=== PATIENT | male | born 1990 | race Caucasian/White ===

== ENCOUNTER 2018-04-02 10:09 | Emergency (ER) | payer OTHER ==
--- NOTE | 2018-04-02 11:31 | ED Physician Documentation ---
PD HPI UPPER EXT INJURY - Stated complaint Stated Complaint: LEFT HAND INJ - Chief complaint Chief Complaint: Ext Problem - History obtained from History obtained from: Patient - History of Present Illness Location: Left, Hand Type of injury: Fall (he was working out with weights, lost balance and fell while still holding the weight. pain at little and ring finger MCPs.) Timing - onset: Today Timing - details: Abrupt onset, Still present Worsened by: Moving, Palpating Associated symptoms: Swelling. No: Weakness, Numbness Contributing factors: No: Anticoagulated Similar symptoms before: Has not had sx before Recently seen: Not recently seen Review of Systems Skin: denies: Rash, Abrasion (s), Laceration (s) Neurologic: denies: Focal weakness, Numbness PD PAST MEDICAL HISTORY - Past Medical History Past Medical History: No Musculoskeletal: None - Past Surgical History Past Surgical History: Yes - Present Medications Home Medications: Ambulatory Orders Medication Instructions Recorded Confirmed Tramadol HCl 50 mg PO Q6H PRN #20 tablet 04/02/18 - Allergies Allergies/Adverse Reactions: Allergies Allergy/AdvReac Type Severity Reaction Status Date / Time morphine Allergy Mild Nausea Verified 04/02/18 10:27 - Social History Does the pt smoke?: No Smoking Status: Never smoker Does the pt drink ETOH?: No Does the pt have substance abuse?: No - Immunizations Immunizations are current?: Yes PD ED PE NORMAL - Vitals Vital signs reviewed: Yes - General General: Alert and oriented X 3, Well developed/nourished, Other (appears uncomfortable due to hand pain. ) - Derm Derm: Normal color, Warm and dry, No rash - Extremities Extremities: Other (left hand with tenderness and swelling MCPs ring and little fingers. Tender to touch and move fingers. Limited flexion but does not show any malrotation with the flexion. Good color and cap refill. ) Results - Vitals Vitals: Oxygen O2 Source Room air - Rads (name of study) left hand Radiology: Prelim report reviewed (5th neck fracture. ), EMP read contemporaneously Procedures - Splint (location) hand left Type of splint: Fiberglass, Ulnar gutter Other: Patient tolerated well, No complications, Neurovascular intact PD MEDICAL DECISION MAKING - ED course Complexity details: reviewed results, considered differential, d/w patient - Sepsis Event Vital Signs: Oxygen O2 Source Room air Departure - Departure Disposition: 01 Home, Self Care Clinical Impression: Fior's metacarpal fracture, neck, closed Qualifiers: Encounter type: initial encounter Metacarpal bone: fifth Fracture alignment: displaced Laterality: right Qualified Code(s): S62.336A - Displaced fracture of neck of fifth metacarpal bone, right hand, initial encounter for closed fracture Condition: Stable Record reviewed to determine appropriate education?: Yes Instructions: ED Francoise Boxer Follow-Up: [facility] [Provider Group] Prescriptions: Tramadol HCl 50 mg PO Q6H PRN #20 tablet PRN Reason: Pain Comments: Keep the splint on until follow-up. Call Wednesday the orthopedic office for follow-up appointment in about a week. At that point they will ensure its still in an adequate position for healing and might change the splint. Elevate ice and rest the hand often to reduce swelling. Tylenol or ibuprofen if needed for pains. Add tramadol if needed for pain. This will take about 4-6 weeks to heal up fully, but you will have increasing use of the hand after 2-3 weeks. Discharge Date/Time: 04/02/18 13:47
[2018-04-02] MEDS ORDERED: ACETAMINOPHEN 325 MG TABLET PO STA (11:46)
--- NOTE | 2018-04-02 12:38 | XRAY Report ---
Procedure Date: 04/02/2018 Accession Number: [id number] / [id number] Procedure: XR - Hand 3 View LT CPT Code: FULL RESULT: EXAM: LEFT HAND RADIOGRAPHY EXAM DATE: 04/02/2018 12:23 PM. CLINICAL HISTORY: Weight dropped onto left hand. COMPARISON: None. TECHNIQUE: 3 views. FINDINGS: Bones: Extra-articular fracture of distal fifth metacarpal shaft extending to the neck. There is 2 mm radial displacement and moderate radial volar angulation of the distal component. Joints: No subluxation. Joint spaces are preserved. Soft Tissues: Swelling at the fracture site. IMPRESSION: 1. Mildly displaced, moderately angulated extra-articular fracture of distal fifth metacarpal. RADIA
[2018-04-02] MEDS ORDERED: oxyCOD/ACETAMIN 5 MG/325 MG TABLET PO STA (13:15)
[2018-04-02 13:39] VITALS: BP 119/83
== END 2018-04-02 13:47 | disposition home or self-care (01) ==
LOC: ED 10:09
DX: S62.337A Displaced fracture of neck of fifth metacarpal bone, left hand, initial encounter for closed fracture (principal); W23.0XXA Caught, crushed, jammed, or pinched between moving objects, initial encounter; Y93.B3 Activity, free weights
CPT/HCPCS: 29125; 73130; 99283; A9270

== ENCOUNTER 2019-07-05 12:02 | Emergency (ER) | payer OTHER ==
--- NOTE | 2019-07-05 15:43 | ED Physician Documentation ---
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 Patient states that he began feeling a bulge in his left groin just near the base of his penis and at the top of his scrotum, which is worse when he stands up. He feels somewhat better when he holds pressure over the area. He denies any dysuria, hematuria, concern for sexual transmitted infection, or penile lesion. He is concerned he may have a hernia. He is in severe pain with standing, and if he presses in the area in certain ways. Review of Systems Constitutional: denies: Fever Nose: denies: Rhinorrhea / runny nose Throat: denies: Oral lesions / sores Cardiac: denies: Chest pain / pressure Respiratory: denies: Dyspnea GI: reports: Abdominal Pain : denies: Dysuria, Frequency Skin: denies: Rash Neurologic: denies: Generalized weakness Endocrine: denies: Polyuria Immunocompromised: denies: Immunocompromised PD PAST MEDICAL HISTORY - Past Medical History Past Medical History: Yes Musculoskeletal: None Other Past Medical History: NEC as infant - Past Surgical History Past Surgical History: Yes General: Other (Partial colectomy as ) - Present Medications Home Medications: Ambulatory Orders Medication Instructions Recorded Confirmed Tramadol HCl 50 mg PO Q6H PRN #20 tablet 04/02/18 - Allergies Allergies/Adverse Reactions: Allergies Allergy/AdvReac Type Severity Reaction Status Date / Time morphine Allergy Mild Nausea Verified 07/05/19 12:21 - Living Situation Living Arrangement: reports: At home - Social History Does the pt smoke?: No Smoking Status: Never smoker Does the pt drink ETOH?: No Does the pt have substance abuse?: No - Immunizations Immunizations are current?: Yes PD ED PE NORMAL - Vitals Vital signs reviewed: Yes - General General: Alert and oriented X 3, No acute distress - HEENT HEENT: PERRL - Neck Neck: Supple, no meningeal sign - Cardiac Cardiac: RRR, No murmur - Respiratory Respiratory: Clear bilaterally - Abdomen Abdomen: Soft, Non tender, Non distended - Male Male : Other (Penis is normal in appearance without lesions. Testicles are normal in appearance, left testicle is somewhat tender, tenderness is greatest at the inguinal ring and at the base of the penis on the left side. A briefly palpable soft mass is felt.) - Derm Derm: Warm and dry - Extremities Extremities: No deformity - Neuro Neuro: Alert and oriented X 3 - Psych Psych: Normal mood, Normal affect Results - Vitals Vitals: Vital Signs - 24 hr 07/05/19 07/05/19 07/05/19 12:21 15:21 19:12 Temperature 37.0 C 37.1 C 37.1 C Heart Rate 70 92 66 Respiratory 15 20 14 Rate Blood Pressure 117/52 L 120/76 120/70 O2 Saturation 100 100 100 Oxygen O2 Source Room air - Labs Labs: Laboratory Tests 07/05/19 07/05/19 07/05/19 16:14 16:14 16:22 WBC 7.3 RBC 4.56 L Hgb 14.0 Hct 42.1 MCV 92.3 MCH 30.7 MCHC 33.3 RDW 11.9 L Plt Count 198 MPV 10.1 Neut # (Auto) 4.4 Lymph # (Auto) 2.2 [place] # (Auto) 0.6 Eos # (Auto) 0.1 Baso # (Auto) 0.1 Absolute Nucleated RBC 0.00 Nucleated RBC % 0.0 Sodium 140 Potassium 4.0 Chloride 104 Carbon Dioxide 25 Anion Gap 11.0 BUN 16 Creatinine 1.6 H Estimated GFR (MDRD) 52 L Glucose 87 Lactic Acid 1.2 Calcium 9.6 Total Bilirubin 1.2 H AST 26 ALT 19 Alkaline Phosphatase 52 Total Protein 8.3 H Albumin 5.0 Globulin 3.3 Albumin/Globulin Ratio 1.5 Lipase 30 Urine Color Urine Clarity Urine pH Ur Specific [place] Urine Protein Urine Glucose (UA) Urine Ketones Urine Occult Blood Urine Nitrite Urine Bilirubin Urine Urobilinogen Ur Leukocyte Esterase Urine RBC Urine WBC Ur Squamous Epith Cells Amorphous Sediment Urine Bacteria Urine Mucus Ur Microscopic Review 07/05/19 16:50 WBC RBC Hgb Hct MCV MCH MCHC RDW Plt Count MPV Neut # (Auto) Lymph # (Auto) [place] # (Auto) Eos # (Auto) Baso # (Auto) Absolute Nucleated RBC Nucleated RBC % Sodium Potassium Chloride Carbon Dioxide Anion Gap BUN Creatinine Estimated GFR (MDRD) Glucose Lactic Acid Calcium Total Bilirubin AST ALT Alkaline Phosphatase Total Protein Albumin Globulin Albumin/Globulin Ratio Lipase Urine Color YELLOW Urine Clarity HAZY Urine pH 7.5 Ur Specific [place] 1.020 Urine Protein NEGATIVE Urine Glucose (UA) NEGATIVE Urine Ketones 40 H Urine Occult Blood NEGATIVE Urine Nitrite NEGATIVE Urine Bilirubin NEGATIVE Urine Urobilinogen 0.2 (NORMAL) Ur Leukocyte Esterase NEGATIVE Urine RBC 0-5 Urine WBC 0-3 Ur Squamous Epith Cells RARE Squamous Amorphous Sediment Few Urine Bacteria Few Urine Mucus Moderate Strands Ur Microscopic Review INDICATED - Rads (name of study) CT abd/pelvis Radiology: Other (No hernia or acute abdominal pathology seen) US testicles Radiology: Other (No evidence of torsion or epididymitis. Reducible left hernia seen.) PD MEDICAL DECISION MAKING - ED course Complexity details: considered differential (Hernia, torsion, UTI, STI, strangulated hernia, incarcerated hernia) ED course: Pt had severe pain in his left inguinal region, and was extremely tender to palpation, labs were obtained and showed mildly elevated creatinine at 1.6, otherwise unremarkable. He has been hydrating poorly so was given 1 L NS bolus. I discussed the elevated creatinine with patient and that he should have it rechecked in follow up with a PCP. CT abd/pelvis with contrast is unrevealing. He continued to have pain and had seemingly more pain in his left testicle, so US was ordered confirming a left-sided reducible hernia without signs of torsion or infection. UA is negative for infection. I discussed the diagnosis of hernia and the need for follow up with general surgery, as well as return precautions with any signs of obstruction or strangulation. Patient agreed and was discharged in the care of his mother. Departure - Departure Disposition: 01 Home, Self Care Clinical Impression: Hernia Condition: Good Instructions: Hernia Follow-Up: Torito Olsen MD [Provider Admit Priv/Credential] - Within 1 week (For follow up on left hernia) Comments: You were seen today for pain in your left groin, we did see a hernia on your ultrasound. You may take Tylenol and ibuprofen for your pain, please follow-up with a general surgeon as soon as possible. I have provided contact information for Dr. Olsen, Please call tomorrow to get an appointment as soon as possible. If you are developing severe/worsening pain, difficulty using the bathroom, persistent vomiting, or other concerning symptoms return to the emergency department Discharge Date/Time: 07/05/19 19:17
[2019-07-05 16:20] LABS: BASOPHILS # (AUTO) 0.1 10^3/uL (0.0-0.1); BASOPHILS % (AUTO) 0.7 %; EOSINOPHILS # (AUTO) 0.1 10^3/uL (0.0-0.7); EOSINOPHILS % (AUTO) 1.8 %; LYMPHOCYTES # (AUTO) 2.2 10^3/uL (1.5-3.5); LYMPHOCYTES % (AUTO) 30.1 %; MEAN CORPUSCULAR HEMOGLOBIN 30.7 pg (27.0-31.0); MEAN CORPUSCULAR HGB CONC 33.3 g/dL (32.0-36.0); MEAN CORPUSCULAR VOLUME 92.3 fL (80.0-94.0); MEAN PLATELET VOLUME 10.1 fL (7.4-11.4); MONOCYTES # (AUTO) 0.6 10^3/uL (0.0-1.0); NEUTROPHILS # (AUTO) 4.4 10^3/uL (1.5-6.6); NEUTROPHILS % (AUTO) 59.3 %; PLT - PLATELET COUNT 198 10^3/uL (130-450); RED BLOOD COUNT 4.56 10^6/uL (4.70-6.10); RED CELL DISTRIBUTION WIDTH 11.9 % (12.0-15.0); WHITE BLOOD COUNT 7.3 x10^3/uL (4.8-10.8)
[2019-07-05] MEDS ORDERED: IOVERSOL 320 100 ML VIAL IVP ONE ×2 (16:31→16:53)
[2019-07-05 16:33] LABS: ALBUMIN/GLOBULIN RATIO 1.5 (1.0-2.2); BILIRUBIN,TOTAL 1.2 mg/dL (0.2-1.0); CALCIUM 9.6 mg/dL (8.5-10.3); CREATININE 1.6 mg/dL (0.6-1.2); TOTAL PROTEIN 8.3 g/dL (6.7-8.2)
[2019-07-05 17:03] LABS: BILIRUBIN,URINE NEGATIVE (NEGATIVE); GLUCOSE, URINE (UA) NEGATIVE (NEGATIVE); KETONES,URINE (UA) 40 mg/dL (NEGATIVE); LEUKOCYTE ESTERASE, URINE NEGATIVE (NEGATIVE); NITRITE,URINE NEGATIVE (NEGATIVE); OCCULT BLOOD,URINE NEGATIVE (NEGATIVE); PH,URINE 7.5 PH (5.0-7.5); PROTEIN,URINE NEGATIVE (NEGATIVE); UROBILINOGEN,URINE 0.2 (NORMAL) E.U./dL (NORMAL)
[2019-07-05] MEDS ORDERED: SODIUM CHLORIDE 0.9% 1,000 ML IV ONE (17:05)
[2019-07-05 17:06] LABS: CLARITY,URINE HAZY (CLEAR)
[2019-07-05 17:13] LABS: AMORPHOUS SEDIMENT,UR Few /LPF; BACTERIA,URINE Few /HPF (None Seen); MUCUS,URINE Moderate Strands; RBC,URINE 0-5 /HPF (0-5); SQUAMOUS EPITHELIAL CELL,UR RARE Squamous (<= Few)
--- NOTE | 2019-07-05 17:21 | CT Report ---
Reason: L inguinal pain, eval for hernia/strangulation Procedure Date: 07/05/2019 Accession Number: [id number] / [id number] Procedure: CT - Abdomen/Pelvis W CPT Code: FULL RESULT: EXAM: CT ABDOMEN AND PELVIS EXAM DATE: 07/05/2019 04:50 PM. CLINICAL HISTORY: Left inguinal pain. Study is performed to evaluate for left inguinal hernia. COMPARISONS: None. TECHNIQUE: Routine helical CT imaging was performed through the abdomen and pelvis. IV contrast: 80 mL of Optiray 320. Enteric contrast: No. Reconstructions: Coronal and sagittal. In accordance with CT protocol optimization, one or more of the following dose reduction techniques were utilized for this exam: automated exposure control, adjustment of mA and/or KV based on patient size, or use of iterative reconstructive technique. FINDINGS: Lung Bases: The lung bases are clear. The heart size is normal. No pleural or pericardial effusion. Liver: Normal. No masses. Gallbladder/Bile Ducts: Unremarkable. Spleen: Normal. Pancreas: Normal. Adrenal Glands: Normal. Kidneys: Normal. No masses or hydronephrosis. Peritoneal Cavity/Bowel: Normal. No free fluid, free air or adenopathy. No masses or acute inflammatory process. I do not identify the appendix. Pelvic Organs: Normal. The bladder and visualized pelvic organs are within normal limits. Vasculature: No aneurysms or other significant abnormality. Bones: No significant abnormality. Other: No inguinal, anterior pelvic wall or anterior abdominal wall hernia. IMPRESSION: 1. No inguinal hernia. 2. The remainder of the CT of the abdomen and pelvis with IV contrast is unremarkable. RADIA
[2019-07-05 19:13] VITALS: BP 120/70
--- NOTE | 2019-07-05 19:29 | Ultrasound Report ---
Reason: L testicular pain/tenderness Procedure Date: 07/05/2019 Accession Number: [id number] / [id number] Procedure: US - Testicle w/Doppler CPT Code: FULL RESULT: EXAM: SCROTAL ULTRASOUND EXAM DATE: 07/05/2019 06:51 PM. CLINICAL HISTORY: Left testicular pain/tenderness. COMPARISON: None. TECHNIQUE: Real-time scanning was performed with static images obtained. Color-flow images were utilized. FINDINGS: Right: Testis: 4.2 x 2.1 x 2.5 cm. Normal size and echotexture. No mass, calcification, or abnormal blood flow. Epididymis: 0.8 x 1.3 x 1.5 cm. Normal size and echotexture. No mass or abnormal blood flow. Hydrocele: None. Varicocele: None. Left: Testis: 4.4 x 1.9 x 2.3 cm. Normal size and echotexture. No mass, calcification, or abnormal blood flow. Epididymis: 0.9 x 1 x 1.3 cm. There is a 4 mm epididymal head cyst. Hydrocele: None. Varicocele: None. Other: Incidental note made of a reducible fat-containing left inguinal hernia, measuring approximately 1.0 x 0.9 cm. IMPRESSION: 1. No evidence of testicular mass, torsion or epididymoorchitis. 2. Reducible, fat-containing left inguinal hernia. 3. Small left epididymal head cyst. RADIA
== END 2019-07-05 19:17 | disposition home or self-care (01) ==
LOC: ED 12:02
DX: K40.90 Unilateral inguinal hernia, without obstruction or gangrene, not specified as recurrent (principal); N50.3 Cyst of epididymis; Z90.49 Acquired absence of other specified parts of digestive tract
CPT/HCPCS: 36415; 74177; 76870; 80053; 81001; 83605; 83690; 85025; 93975; 96360; 99284; Q9967; 81003

== ENCOUNTER 2019-12-04 06:23 | Day surgery (SDC) | payer OTHER ==
[2019-12-04] MEDS ORDERED: ACETAMINOPHEN 1,000 MG/100 ML 100 ML IV ONE (06:24)
[2019-12-04] MEDS ORDERED: KETOROLAC 30 MG/ML VIAL IVP ONE (06:24)
[2019-12-04] MEDS ORDERED: LIDOCAINE-MPF 2% 5 ML VIAL IM ONE (06:24)
[2019-12-04] MEDS ORDERED: MIDAZOLAM 2 MG/2 ML VIAL IVP ONE (06:24)
[2019-12-04] MEDS ORDERED: fentaNYL 100 MCG/2 ML VIAL IVP ONE (06:24)
[2019-12-04] MEDS ORDERED: GLYCOPYRROLATE 1 MG/5 ML VIAL IVP ONE (06:24)
[2019-12-04] MEDS ORDERED: ONDANSETRON 4 MG/2 ML VIAL IVP ONE (06:24)
[2019-12-04] MEDS ORDERED: DEXAMETHASONE 4 MG/ML VIAL IVP ONE (06:24)
[2019-12-04] MEDS ORDERED: PROPOFOL 200 MG/20 ML VIAL IVP ONE (06:24)
[2019-12-04] MEDS ORDERED: CEFAZOLIN SODIUM IN 0.9 % NACL 2 GM/100 ML BAG IV ONE (06:41)
[2019-12-04] MEDS ORDERED: LACTATED RINGERS 1,000 ML IV ONE ×2 (07:04→09:30)
[2019-12-04] MEDS ORDERED: LIDOCAINE 1%-EPI 1:100000 20 ML MDV ONE (07:23)
[2019-12-04] MEDS ORDERED: ceFAZolin 1 GM VIAL ONE (07:23)
[2019-12-04] MEDS ORDERED: BUPIVACAINE 0.5% PF 30 ML VIAL ONE (07:23)
[2019-12-04] MEDS ORDERED: SODIUM CHLORIDE 0.9% 10 ML ONE (07:24)
--- NOTE | 2019-12-04 07:24 | ANESTHESIA ---
Pre-Anesthesia VS, & Labs - Diagnosis Left inguinal hernia - Procedure Left Inguinal hernia repair Vital Signs: Temp Pulse Resp BP Pulse Ox 36.5 C 84 18 137/86 H 100 12/04/19 06:45 12/04/19 06:45 12/04/19 06:45 12/04/19 06:45 12/04/19 06:45 Height 5 ft 6 in Weight (kg) 59 kg Body Mass Index 20.9 - NPO >8 hours Home Medications and Allergies Home Medications: Ambulatory Orders Multivitamin [Multiple Vitamins] 1 each PO DAILY 11/27/19 Multivitamin [Multiple Vitamins] 1 each PO DAILY 11/27/19 Allergies/Adverse Reactions: Allergies Allergy/AdvReac Type Severity Reaction Status Date / Time morphine AdvReac Mild Nausea Verified 11/27/19 17:10 Anes History & Medical History - Anesthetic History Anesthesia Complications: reports: No previous complications - Medical History Cardiovascular: reports: None Pulmonary: reports: None Gastrointestinal: reports: None Urinary: reports: None Neuro: reports: None Musculoskeletal: reports: None Endocrine/Autoimmune: reports: None Blood Disorders: reports: None Skin: reports: None Smoking Status: Never smoker - Surgical History General: Bowel surgery (NEC as ) Exam General: Alert, Oriented x3, Cooperative, No acute distress Dental: WNL Mouth Openin Fingerbreadth Neck Mobility: Normal Mallampati classification: II Thyromental Distance: 4-6 cm Respiratory: Lungs clear, Normal breath sounds, No respiratory distress, No ac cessory muscle use Cardiovascular: Regular rate, Normal S1, Normal S2, No murmurs Mental/Cognitive Status: Alert/Oriented X3, Normal for patient Plan Anesthesia Type: General Consent for Procedure(s) Verified and Reviewed: Yes Code Status: Attempt Resuscitation ASA classification: 1-Healthy patient Is this case an emergency?: No
[2019-12-04] MEDS ORDERED: BUPIVACAINE 0.5% PF 30 ML VIAL INFIL ONE (08:22)
[2019-12-04] MEDS ORDERED: ceFAZolin 1 GM VIAL IR ONE (08:23)
[2019-12-04] MEDS ORDERED: LIDOCAINE 1% 50 ML MDV SUBQ ONE (08:23)
--- NOTE | 2019-12-04 08:52 | OPERATIVE REPORT ---
Operative Report - General Procedure Date: 12/04/19 Planned Procedure: Left Inguinal Hernia Repair Pre-Op Diagnosis: Left Inguinal Hernia Procedure Performed: Left Inguinal Hernia Repair Post Op Diagnosis: Left Inguinal Hernia - Procedure Note Primary Surgeon: Danica Anesthesia Provider: JUAN PABLO Benton Anesthesia Technique: General LMA, Local, Regional block Pathology: None Estimated Blood Loss (mL): 5 Indications: Symptomatic left inguinal hernia Findings: Moderate indirect left inguinal hernia Complications: None apparent - Other Other Information/Narrative: After obtaining informed consent, the patient is brought to the operating room and placed in the supine position on the operating table. Following successful induction of general endotracheal anesthesia, appropriate padding of all bony prominences, and placement of appropriate monitors, the abdomen was prepped and draped in the standard surgical fashion. A timeout was held per scope protocol. All elements of the surgical safety checklist were followed before, during, and after the procedure. We began the procedure by infiltrating a mixture of local anesthetics medial to the anterior superior iliac spine on the left. This was done to create an ileal inguinal nerve block. We then selected a site for an incision in the left lower quadrant just superior and lateral to the pubic tubercle. This area was anesthetized with additional local anesthetic and an incision was created here.The incision was carried down through the skin and subcutaneous tissue to reveal the fascia of the external oblique aponeurosis. Retractor was placed and the aponeurosis was opened in direction of its fibers. The ilioinguinal nerve was immediately identified. We continued by identifying the spermatic cord and gently encircling it with a [place] drain. The hernia sac was carefully dissected free from the cord structures and was noted to be in the inferior medial position. The sac was in the indirect position. We carefully dissected the spermatic cord from the sac. The hernia sac was then placed back into the abdominal cavity. We elected to repair the hernia with a large Bard Plug and Patch mesh implant. The interior leaflets of the plug were sewn to the posterior surface of the patch with an interrupted prolene suture to create a single piece. This was dipped in Ancef containing solution and then deployed into the defect. The posterior plug and leaflets were straightened and flattened in the preperitoneal space. The anterior leaflet was placed around the spermatic cord and then closed with a Vicryl suture. The more inferior aspect was then sewn to Raleigh's ligament medially. Laterally it was tucked under the external beak aponeurosis. The wound was checked for hemostasis and irrigated with warm saline solution. It was aspirated free of all fluid and particulate matter. The extra oblique aponeurosis was then closed with a running locking Vicryl suture Walter's fascia was closed with Vicryl suture and Monocryl stitches were placed in the skin. All sponge, needle, and instrument counts were correct at the conclusion of the case. The patient was allowed a waken from anesthesia without difficulty and taken to the postanesthesia care unit in good condition.
[2019-12-04] MEDS ORDERED: IBUPROFEN 600 MG TABLET PO PRN (08:55)
[2019-12-04] MEDS ORDERED: ONDANSETRON 4 MG/2 ML VIAL IVP PRN (08:55)
[2019-12-04] MEDS ORDERED: ACETAMINOPHEN 325 MG TABLET PO PRN (08:55)
[2019-12-04] MEDS ORDERED: oxyCODONE 5 MG TABLET PO PRN (08:55)
[2019-12-04 11:18] VITALS: BP 122/86
== END 2019-12-04 06:24 | disposition home or self-care (01) ==
LOC: SDS 06:23
PROVIDERS: ATTEND Surgery
DX: K40.90 Unilateral inguinal hernia, without obstruction or gangrene, not specified as recurrent (principal); Z87.891 Personal history of nicotine dependence
CPT/HCPCS: 49505; C1781; J0131; J0690; J7120

== ENCOUNTER 2019-12-08 18:49 | Outpatient (CLI) | payer OTHER | END 2019-12-08 18:50 | disposition critical access hospital (66) | LOC: EMS 18:49 | PROVIDERS: ATTEND Surgery | DX: R55 Syncope and collapse (principal); R10.30 Lower abdominal pain, unspecified; R19.8 Other specified symptoms and signs involving the digestive system and abdomen | CPT/HCPCS: A0425; A0427 ==

== ENCOUNTER 2019-12-08 19:19 | Emergency (ER) | payer OTHER ==
[2019-12-08] MEDS ORDERED: SODIUM CHLORIDE 0.9% 1,000 ML IV ONE (19:39)
[2019-12-08] MEDS ORDERED: MINERAL OIL ENEMA 133 ML BOTTLE RC STA (19:39)
--- NOTE | 2019-12-08 20:03 | ED Physician Documentation ---
History of Present Illness - Stated complaint Stated Complaint: CONSTIPATION SP SURGERY - Chief complaint Chief Complaint: Abd Pain - History obtained from History obtained from: Patient (the patient is a 29 y/o m who presents via EMS with a cc of constipation after he had an open left inguinal hernia repair on 12/04/[address] parada. he was taking oxycodone several times a day as well as a stool softener but has decreased his oxycodone usage, he was trying to have a BM today and felt weak and called 911, denies a headache, has not had a BM since his surgery.) Review of Systems Constitutional: reports: Reviewed and negative Eyes: reports: Reviewed and negative Ears: reports: Reviewed and negative Nose: reports: Reviewed and negative Throat: reports: Reviewed and negative Cardiac: reports: Reviewed and negative Respiratory: reports: Reviewed and negative GI: reports: Constipation : reports: Reviewed and negative Skin: reports: Reviewed and negative Musculoskeletal: reports: Reviewed and negative Neurologic: reports: Reviewed and negative Psychiatric: reports: Reviewed and negative Endocrine: reports: Reviewed and negative Immunocompromised: reports: Reviewed and negative PD PAST MEDICAL HISTORY - Past Medical History Past Medical History: Yes Cardiovascular: None Respiratory: None Neuro: None Endocrine/Autoimmune: None GI: None : None HEENT: Chronic vision loss Psych: None Musculoskeletal: None Derm: None - Past Surgical History Past Surgical History: Yes General: Bowel surgery - Present Medications Home Medications: Ambulatory Orders Medication Instructions Recorded Confirmed Multivitamin [Multiple Vitamins] 1 each PO DAILY 11/27/19 11/27/19 Ondansetron Odt [Zofran] 4 mg TL Q6H PRN #10 tablet 12/04/19 oxyCODONE [Roxicodone] 5 mg PO Q6H PRN #20 tablet 12/04/19 - Allergies Allergies/Adverse Reactions: Allergies Allergy/AdvReac Type Severity Reaction Status Date / Time morphine AdvReac Mild Nausea Verified 12/08/19 19:26 - Social History Does the pt smoke?: No Smoking Status: Never smoker Does the pt drink ETOH?: No Does the pt have substance abuse?: No - Immunizations Immunizations are current?: Yes - POLST Patient has POLST: No PD ED PE NORMAL - Vitals Vital signs reviewed: Yes - General General: Alert and oriented X 3, No acute distress, Well developed/nourished - HEENT HEENT: Atraumatic, PERRL, Moist mucous membranes, Pharynx benign - Neck Neck: Supple, no meningeal sign, No JVD - Cardiac Cardiac: RRR, No murmur, Strong equal pulses - Respiratory Respiratory: No respiratory distress, Clear bilaterally - Abdomen Abdomen: Soft, Non distended, Other (diffuse ttp in the left lower quadrant, incision is clean dry and intact without signs of infection, diminished bowel sounds, no midline abd pulsatile mass) - Rectal Rectal: Other (no external lesions, no fissures/fistulas/internal or external hemorrhoids, large amount of hard stool in the rectal vault, no blood, good rectal tone, no prostate masses noted.) - Back Back: No CVA TTP, No spinal TTP - Derm Derm: Normal color, Warm and dry, No rash - Extremities Extremities: No deformity, No tenderness to palpate, Normal ROM s pain, No edema, No calf tenderness / cord - Neuro Neuro: Alert and oriented X 3, 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 ), considered differential (post operative constipation/stool impaction. will try mineral oil enema/soap suds enema/fleets enema if not working will try go lytely) Departure - Departure Disposition: 01 Home, Self Care Clinical Impression: Constipation Qualifiers: Constipation type: unspecified constipation type Qualified Code(s): K59.00 - Constipation, unspecified Condition: Stable Instructions: ED Constipation Follow-Up: LLUVIA SMITH MD [Primary Care Provider] - As Needed
[2019-12-08] MEDS ORDERED: PEG 3350/NA SULF,BICARB,CL/KCL 4,000 ML BOTTLE PO ONE (20:28)
[2019-12-08] MEDS ORDERED: SALINE ENEMA 133 ML BOTTLE RC STA (20:31)
[2019-12-08] MEDS ORDERED: SOAP SUDS ENEMA 1 EACH RC ONE (20:31)
[2019-12-08] MEDS ORDERED: PEG 3350/NA SULF,BICARB,CL/KCL 4,000 ML BOTTLE ONE (20:44)
[2019-12-08] MEDS ORDERED: ONDANSETRON 4 MG/2 ML VIAL IVP STA (20:50)
[2019-12-08] MEDS ORDERED: KETAMINE 500 MG/10 ML VIAL IVP STA (20:52)
[2019-12-08] MEDS ORDERED: ONDANSETRON 4 MG/2 ML VIAL ONE (20:53)
[2019-12-08 22:00] VITALS: BP 118/60
== END 2019-12-08 22:00 | disposition home or self-care (01) ==
LOC: EDUNIT# → ED 19:19
DX: K59.00 Constipation, unspecified (principal)
CPT/HCPCS: 96361; 96374; 99283; 99284; A9270

== ENCOUNTER 2020-08-17 13:41 | Outpatient (CLI) | payer OTHER | END 2020-08-17 13:42 | disposition EMS.NT | LOC: EMS 13:41 | PROVIDERS: ATTEND Surgery | DX: R42 Dizziness and giddiness (principal); R20.2 Paresthesia of skin; R25.2 Cramp and spasm ==

== ENCOUNTER 2023-03-10 09:22 | Outpatient (CLI) | payer OTHER ==
[2023-03-10 14:33] LABS: BASOPHILS # (AUTO) 0.1 10^3/uL (0.0-0.1); BASOPHILS % (AUTO) 0.8 %; EOSINOPHILS # (AUTO) 0.5 10^3/uL (0.0-0.7); EOSINOPHILS % (AUTO) 6.1 %; HCT - HEMATOCRIT 42.4 % (42.0-52.0); HGB - HEMOGLOBIN 13.7 g/dL (14.0-18.0); LYMPHOCYTES # (AUTO) 2.4 10^3/uL (1.5-3.5); LYMPHOCYTES % (AUTO) 32.4 %; MEAN CORPUSCULAR HEMOGLOBIN 30.5 pg (27.0-31.0); MEAN CORPUSCULAR HGB CONC 32.3 g/dL (32.0-36.0); MEAN CORPUSCULAR VOLUME 94.4 fL (80.0-94.0); MEAN PLATELET VOLUME 10.5 fL (7.4-11.4); MONOCYTES # (AUTO) 0.5 10^3/uL (0.0-1.0); MONOCYTES % (AUTO) 6.8 %; NEUTROPHILS % (AUTO) 53.6 %; PLT - PLATELET COUNT 206 10^3/uL (130-450); RED BLOOD COUNT 4.49 10^6/uL (4.70-6.10); RED CELL DISTRIBUTION WIDTH 12.2 % (12.0-15.0); WHITE BLOOD COUNT 7.5 x10^3/uL (4.8-10.8)
[2023-03-10 14:43] LABS: PT - PROTHROMBIN TIME 11.6 secs (9.9-12.6)
[2023-03-10 14:52] LABS: ALBUMIN 4.3 g/dL (3.2-5.5); ALBUMIN/GLOBULIN RATIO 1.5 (1.0-2.2); ALKALINE PHOSPHATASE 48 IU/L (42-121); ALT ALANINE AMINOTRANSFERASE 12 IU/L (10-60); AST ASPARTATE AMINOTRANSFERASE 18 IU/L (10-42); BILIRUBIN,TOTAL 0.8 mg/dL (0.2-1.0); BUN - BLOOD UREA NITROGEN 14 mg/dL (6-20); CALCIUM 9.2 mg/dL (8.5-10.3); CARBON DIOXIDE - CO2 28 mmol/L (21-32); CHLORIDE 104 mmol/L (101-111); GFR - MDRD 88 (>89); GLUCOSE 91 mg/dL (70-100); POTASSIUM 4.2 mmol/L (3.5-5.0); SODIUM 139 mmol/L (135-145); TOTAL PROTEIN 7.2 g/dL (6.7-8.2)
[2023-03-10 14:53] LABS: CRP - C-REACTIVE PROTEIN < 1.0 mg/dL (0-1.0)
[2023-03-10 14:59] LABS: THYROID STIMULATING HORMONE 2.07 uIU/mL (0.34-5.60)
[2023-03-11 04:09] LABS: HIV SCREEN 4TH GENERATION Non Reactive (Non Reactive)
== END 2023-03-10 09:23 | disposition home or self-care (01) ==
LOC: LAB.S 09:22
PROVIDERS: ATTEND Physician Assistant
DX: R61 Generalized hyperhidrosis (principal)
CPT/HCPCS: 36415; 80053; 81599; 84443; 85025; 85610; 86140; 86480; 87389

== ENCOUNTER 2023-05-13 10:59 | Outpatient (CLI) | payer OTHER ==
[2023-05-13] MEDS ORDERED: iohexoL-300 100 ML VIAL IVP ONE (15:32)
[2023-05-13] MEDS ORDERED: BARIUM SULFATE 450 ML BOTTLE PO ONE (15:32)
--- NOTE | 2023-05-13 16:55 | CT Report ---
PROCEDURE: ABDOMEN/PELVIS W INDICATIONS: NIGHT SWEATS, INGUINAL PAIN CONTRAST: 100ml omni 300 TECHNIQUE: After the administration of oral and intravenous contrast, 5 mm thick sections acquired from the diap hragms to the symphysis. 5 mm thick coronal and sagittal reformats were acquired. For radiation dos e reduction, the following was used: automated exposure control, adjustment of mA and/or kV accordin g to patient size. COMPARISON: 07/05/2019 FINDINGS: Image quality: Excellent. Lung bases and heart: Unremarkable. Liver: No solid mass. Gallbladder and biliary tree: No radiopaque stones or wall thickening. No biliary dilation. Spleen: No splenomegaly. Pancreas: No pancreatic ductal dilation. Adrenals: No adrenal nodule. Kidneys and ureters: No hydronephrosis. No renal cystic lesion which requires follow up. No solid mas s. Bowel and peritoneum: No bowel distension. No pathologic free fluid. Lymph nodes: No central or retroperitoneal adenopathy. Vessels: No infrarenal aortic aneurysm. PELVIS Reproductive organs: Unremarkable. Bladder: No abnormal wall thickening, accounting for underdistension. Pelvic lymph nodes: No pelvic adenopathy by size criteria. Bones: No aggressive osseous abnormality. Other: No significant ventral or inguinal hernia. Prior left inguinal hernia repair. IMPRESSION: Unremarkable CT of the abdomen and pelvis. No recurrent inguinal hernia, status post repair on the le ft. No adenopathy or splenomegaly to suggest lymphoma. Reviewed by: Nikolai Hairston on 05/13/2023 4:54 PM PDT Approved by: Nikolai Hairston on 05/13/2023 4:54 PM PDT Station ID: [id number]
--- NOTE | 2023-05-13 16:57 | CT Report ---
PROCEDURE: CHEST W INDICATIONS: NIGHT SWEATS, INGUINAL PAIN CONTRAST: 100ml omni 300 TECHNIQUE: After the administration of intravenous contrast, 1 mm axial images were acquired from the pulmonary apices through the posterior costophrenic angles. Axial 5 mm soft tissue kernel reconstructions were performed as well as 8 mm axial MIP and coronal and sagittal 5 mm reformations. For radiation dose reduction, the following was used: automated exposure control, adjustment of mA and/or kV according to patient size. COMPARISON: None. FINDINGS: Image quality: Excellent. Lungs and pleura: No consolidation. No pleural effusions. No pneumothorax. No suspicious pulmonary n odules which require follow up. Mediastinum: Heart size is normal. No pericardial effusion. No large vessel abnormality. No mediastin al adenopathy by size criteria. Chest wall and lower neck: Thyroid is unremarkable. No axillary or supraclavicular adenopathy by size . Bones: No aggressive osseous abnormality. Right humeral head bone island. Upper Abdomen: Unremarkable. IMPRESSION: Normal chest CT. No findings to explain the patient's night sweats. Reviewed by: Nikolai Hairston on 05/13/2023 4:55 PM PDT Approved by: Nikolai Hairston on 05/13/2023 4:55 PM PDT Station ID: [id number]
== END 2023-05-13 11:00 | disposition home or self-care (01) ==
LOC: DI 10:59
PROVIDERS: ATTEND Physician Assistant
DX: R61 Generalized hyperhidrosis (principal); R10.32 Left lower quadrant pain; Z98.890 Other specified postprocedural states
CPT/HCPCS: 71260; 74177; A9270; Q9967